=== PATIENT | female | born 1960 | race Two or more races ===

== ENCOUNTER 2018-02-02 13:25 | Emergency (ER) | payer BC, OTHER ==
[~2018-02-02] VITALS: Ht 160 cm; Wt 68.9 kg
[2018-02-02 14:55] VITALS: BP 133/75
[2018-02-02] MEDS ORDERED: KETOROLAC TROMETH 60MG/2ML VIAL IM ONE (15:30)
== END 2018-02-02 16:35 | disposition home or self-care (01) ==
LOC: ER 13:25
DX: M25.572 Pain in left ankle and joints of left foot (principal); I10 Essential (primary) hypertension; Z90.89 Acquired absence of other organs; Z88.0 Allergy status to penicillin
CPT/HCPCS: 73610; 96372; 99283; J1885